=== PATIENT | female | born 1990 | race American Indian/Alaskan Native ===

== ENCOUNTER 2017-04-13 14:11 | Emergency (ER) | payer SELFPAY ==
[2017-04-13 14:47] VITALS: BP 134/83
--- NOTE | 2017-04-13 22:45 | Emergency Department Report ---
Entered by MUSTAPHA CABAN, acting as scribe for DESTINI AZAR PA. ED N/V/D HPI - General Chief complaint: Nausea/Vomiting/Diarrhea Stated complaint: POSS FOOD POISONING Time Seen by Provider: 04/13/17 17:08 Source: patient Mode of arrival: Ambulatory Limitations: No Limitations - History of Present Illness Initial comments: 26 y/o female with no significant PMHx presents to the ED c/o vomiting that began this afternoon. Patient states her symptoms began after eating 1 chicken strip from [employer]. Patient states while eating the chicken, she noticed black/green substance in the middle of her chicken. Denies fever, chills, abdominal pain, and diarrhea. NKDA. REZA complaint: vomiting -: This afternoon Description of Vomiting: food contents Associated Abdominal Pain: No Radiation: none Severity: mild Improves with: none Worsens with: none Context: possible food poisoning Associated Symptoms: denies other symptoms. denies: cough, fever/chills, headaches, nausea/vomiting, rash, shortness of breath - Related Data Previous Rx's Medication Instructions Recorded Last Taken Type Loperamide [Imodium] 2 mg PO PRN #10 capsule 04/13/17 Unknown Rx Mag Hydrox/Al Hydrox/Simeth 15 ml PO BID #1 bottle 04/13/17 Unknown Rx [Maalox Advanced Suspension] Ondansetron [Zofran Odt] 4 mg PO PRN PRN #20 tab.rapdis 04/13/17 Unknown Rx Allergies Allergy/AdvReac Type Severity Reaction Status Date / Time No Known Allergies Allergy Verified 07/14/14 14:56 ED Review of Systems Comment: All other systems reviewed and negative Constitutional: denies: chills, fever Respiratory: denies: cough, shortness of breath, wheezing Cardiovascular: denies: chest pain, palpitations Endocrine: no symptoms reported Gastrointestinal: vomiting. denies: abdominal pain, nausea, diarrhea Skin: denies: rash, lesions Neurological: denies: headache ED Past Medical Hx - Past Medical History Previous Medical History?: No Hx Hypertension: No Hx Congestive Heart Failure: No Hx Diabetes: No Hx Deep Vein Thrombosis: No Hx Renal Disease: No Hx Sickle Cell Disease: No Hx Seizures: No Hx Asthma: No Hx COPD: No Hx HIV: No - Social History Smoking Status: Never Smoker Substance Use Type: None - Medications Home Medications: Home Medications Medication Instructions Recorded Confirmed Last Taken Type Loperamide [Imodium] 2 mg PO PRN #10 capsule 04/13/17 Unknown Rx Mag Hydrox/Al Hydrox/Simeth 15 ml PO BID #1 bottle 04/13/17 Unknown Rx [Maalox Advanced Suspension] Ondansetron [Zofran Odt] 4 mg PO PRN PRN #20 tab.rapdis 04/13/17 Unknown Rx ED Physical Exam - General Limitations: No Limitations General appearance: alert, in no apparent distress - Head Head exam: Present: atraumatic, normocephalic - Eye Eye exam: Present: normal appearance, PERRL, EOMI Pupils: Present: normal accommodation - ENT ENT exam: Present: normal exam, mucous membranes moist - Neck Neck exam: Present: normal inspection, full ROM. Absent: tenderness, meningismus, lymphadenopathy - Respiratory Respiratory exam: Present: normal lung sounds bilaterally. Absent: respiratory distress, wheezes, rales, rhonchi, stridor - Cardiovascular Cardiovascular Exam: Present: regular rate, normal rhythm, normal heart sounds. Absent: systolic murmur, diastolic murmur, rubs, gallop - GI/Abdominal GI/Abdominal exam: Present: soft, normal bowel sounds. Absent: distended, tenderness, guarding, rebound, rigid - Extremities Exam Extremities exam: Present: normal inspection, full ROM - Back Exam Back exam: Present: normal inspection - Neurological Exam Neurological exam: Present: alert, oriented X3 - Psychiatric Psychiatric exam: Present: normal affect, normal mood - Skin Skin exam: Present: warm, dry, intact. Absent: rash ED Course Vital Signs 04/13/17 14:37 Temperature 97.7 F Pulse Rate 104 H Respiratory 18 Rate Blood Pressure 134/83 O2 Sat by Pulse 100 Oximetry ED Medical Decision Making - Medical Decision Making 26-year-old female presents with vomiting after eating [employer] ED course: Patient had no episodes of vomiting in the ED stay. Patient will be prescribed medication for vomiting and diarrhea. Patient is not ill-appearing. Normal exam. Discussed the follow-up for an PCP as referred. Discuss her symptoms return or worsen to return to the ED Patient states understanding and will follow instructions. Vital signs stable. Patient is in no acute distress. ED Disposition Clinical Impression: Acute vomiting Disposition: DC-01 TO HOME OR SELFCARE Is pt being admited?: No Does the pt Need Aspirin: No Condition: Stable Instructions: Food Poisoning (ED), Gastroenteritis (ED) Prescriptions: Loperamide [Imodium] 2 mg PO PRN #10 capsule Mag Hydrox/Al Hydrox/Simeth [Maalox Advanced Suspension] 15 ml PO BID #1 bottle Ondansetron [Zofran Odt] 4 mg PO PRN PRN #20 tab.rapdis PRN Reason: Nausea Referrals: PRIMARY CARE,MD [Primary Care Provider] - 3-5 Days [facility] [Outside] - 3-5 Days [facility] [Outside] - 3-5 Days Forms: Accompanied Note, Work/School Release Form(ED) Time of Disposition: 18:10 This documentation as recorded by the ARSH parker JASMINE,accurately reflects the service I personally performed and the decisions made by NISSA rey OYINLOLA A, PA.
== END 2017-04-13 18:21 | disposition home or self-care (01) ==
LOC: ED 14:11
DX: R11.10 Vomiting, unspecified (principal)
CPT/HCPCS: 99282

== ENCOUNTER 2022-01-29 07:45 | Emergency (ER) | payer MEDICAID ==
[2022-01-29 08:54] LABS: Hematocrit 39.6 % (30.3-42.9); Mean Corpuscular HGB Conc 35 % (30-34); Mean Corpuscular Volume 90 fl (79-97); Platelet Count 178 K/mm3 (140-440); Red Cell Distribution Width 13.6 % (13.2-15.2)
[2022-01-29] MEDS ORDERED: predniSONE 20 MG TAB PO ONE (09:12)
[2022-01-29] MEDS ORDERED: KETOROLAC 10 MG TAB PO ONE (09:12)
[2022-01-29 09:15] LABS: Alanine Aminotransferase 14 units/L (7-56); Albumin 4.1 g/dL (3.9-5); Blood Urea Nitrogen 12 mg/dL (7-17); Hemolysis Index 8
[2022-01-29 09:16] LABS: BUN/Creatinine Ratio 20
[2022-01-29 10:17] LABS: Bilirubin,Urine NEG (Negative); Blood,Urine LG (Negative); Color,Urine Yellow (Yellow); Protein,Urine <15 mg/dL mg/dL (Negative); Urobilinogen,Urine < 2.0 mg/dL (<2.0)
[2022-01-29 10:24] LABS: RBC,Urine < 1.0 /HPF (0.0-6.0); WBC,Urine < 1.0 /HPF (0.0-6.0)
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
[2022-01-29 10:58] VITALS: BP 114/75
== END 2022-01-29 10:58 | disposition home or self-care (01) ==
LOC: ED 07:45
DX: M54.50 Low back pain, unspecified (principal); N93.9 Abnormal uterine and vaginal bleeding, unspecified; N39.0 Urinary tract infection, site not specified
CPT/HCPCS: 36415; 80053; 81001; 84703; 85027; 99283